=== PATIENT | female | born 1985 | race Caucasian/White ===

== ENCOUNTER → 2023-04-08 10:15 | Outpatient (BNV) | payer MEDICARE, MEDICAID, SELFPAY | PROVIDERS: Visit Provider Psychiatry & Neurology Psychiatry | DX: F31.60 Bipolar disorder, current episode mixed, unspecified (principal); F14.90 Cocaine use, unspecified, uncomplicated | CPT/HCPCS: 90792 ==

== ENCOUNTER 2023-04-08 13:59 | Outpatient (REF) | payer MEDICARE, SELFPAY ==
[2023-04-08 15:22] LABS: Amphetamine Screen Urine POSITIVE (Not Detect); Barbiturates, Urine Not Detected (Not Detect); Benzodiazepines Screen Urine Not Detected (Not Detect); Cannabinoid Screen Urine POSITIVE (Not Detect); Cocaine Screen Urine POSITIVE (Not Detect); Fentanyl, urine Not Detected (Not Detect); Opiate Screen Urine Not Detected (Not Detect); Phencyclidine Screen Urine Not Detected (Not Detect)
== END 2023-04-08 14:00 | disposition home or self-care (01) ==
LOC: HO.LNP 13:59
PROVIDERS: Visit Provider Psychiatry & Neurology Psychiatry
DX: F14.20 Cocaine dependence, uncomplicated (principal); F10.20 Alcohol dependence, uncomplicated
CPT/HCPCS: 80307

== ENCOUNTER 2023-04-25 09:45 | Outpatient (RCR) | payer MEDICARE, MEDICAID, SELFPAY ==
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
[2023-04-08 11:49] VITALS: BP 112/72; PULSE 76; TEMP 36.4
[2023-04-08 11:52] VITALS: BMI 46.7
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
--- NOTE | 2023-04-15 08:07 | HO.PHP ---
The clients case was reviewed and opened in treatment team.
--- NOTE | 2023-04-15 16:49 | HO.PHP ---
The client overslept this morning . She will be in on Tuesday.
--- NOTE | 2023-04-28 15:03 | HO.PHP ---
I left a message for the clients therapist Yuliana at [facility] re discharge from the program.
== END 2023-04-25 23:59 | disposition home or self-care (01) ==
LOC: HO.PHPA 09:45
PROVIDERS: Visit Provider Psychiatry & Neurology Psychiatry
DX: F31.60 Bipolar disorder, current episode mixed, unspecified (principal); F14.90 Cocaine use, unspecified, uncomplicated; F11.20 Opioid dependence, uncomplicated; Z79.899 Other long term (current) drug therapy
CPT/HCPCS: 90791; 90853

== ENCOUNTER → 2023-04-29 12:52 | Outpatient (BNVA) | payer MEDICARE, MEDICAID, SELFPAY | PROVIDERS: Visit Provider Physician Assistant Surgical ==

== ENCOUNTER 2023-08-12 13:00 | Outpatient (AMB) | payer MEDICARE, MEDICAID, SELFPAY ==
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
[2023-08-12 12:55] VITALS: BMI 51.4
== END 2023-08-12 14:57 | disposition home or self-care (01) ==
LOC: HO.HBS 14:56
PROVIDERS: Visit Provider Physician Assistant Surgical
DX: E66.01 Morbid (severe) obesity due to excess calories (principal); Z68.43 Body mass index [BMI] 50.0-59.9, adult; R06.83 Snoring
CPT/HCPCS: 99443

== ENCOUNTER → 2023-08-12 13:00 | Outpatient (BNVA) | payer MEDICARE, MEDICAID, SELFPAY | PROVIDERS: Visit Provider Physician Assistant Surgical | DX: E66.01 Morbid (severe) obesity due to excess calories (principal); R06.83 Snoring ==

== ENCOUNTER 2023-08-24 15:04 | Outpatient (AMB) | payer MEDICARE, MEDICAID, SELFPAY ==
--- NOTE | 2023-08-24 14:53 | A.OFFVIS_ITS ---
Intake Intake Visit Reasons: VIDEO Initial Nutrition SWL Ladies Locker Room Attendant Required: No Allergies No Known Allergies Allergy (Verified 04/08/23 11:49) HPI Nutrition Presentation Reason for consult elevated BMI Unstable SDH Reports transportation, food insecurity and use of SNAP Diet Assmnt Details Hasn't started the nutrition plan with the protein shakes. Gets rides through [employer] so hasn't gotten to purchase the shakes yet. SDhe reports otherwise she has been trying to follow the plan and make healthy food choices. Has alot of beef at home, looking for recipes. sent all resources today. Does not have top teeth, so cannot have protein bars, raw veg pt reports she has a pollen allergy so cannot have fruit - is only able to eat a very small amount of certain fruits. Has 6 children , does not have custody of her 2 year old twin children. quit smoking cigarettes 2 weeks ago. Has a hx of cocaine use, alcohol abuse. Tested positive for cocaine March of 2023 , noted 2022 partial hospitalization program Dietary counseling reduction Lifestyle Emotional Eating Reports sad, depression and anxiety Food frequency Dairy: daily, Fruit: never, Vegetables: never, Grains/pasta/breads/cereal (carbs): daily and Meats/poultry/fish (protein): daily Diagnosis Nutrition problem #1 overweight/obesity As related to (etiology) #1 excess energy intake and physical inactivity As evidenced by (sign/symptom) #1 high BMI Monitoring/Goals Nutrition problem monitoring total energy intake, level of knowledge/skill, total PRO intake, total CHO intake and weight Learning/Education Readiness to learn fair Stages of change pre-contemplation Most Recent Diabetes Results: No Data to Display [facility] Medical History (Updated 08/16/23 @ 16:20 by EVANS Bautista) Crack cocaine use Bilateral carpal tunnel syndrome delivery delivered Asthma Fibromyalgia Surgical History History of surgery on lower extremity Social History Household Members: Spouse Patient Tobacco Use Status: Current everyday Tobacco user Tobacco use type: Cigarette Assessment & Plan Assessment & Plan (1) Morbid obesity: Code(s): E66.01 - Morbid (severe) obesity due to excess calories Plan will discuss candidacy with team Telehealth Telehealth Location of provider rendering services: practice address Location of patient: address on file Patient Identification confirmed using: Name, : Yes Telehealth method: video Patient verbally consented to treatment: Yes Patient verbally consented to billing insurance company: Yes Patient informed of any privacy concerns related to visit: Yes Minutes spent on Phone/Video with Pt.: 25 Coding Level of Care Code Nutr Indiv Intake (39907) Diagnoses Morbid obesity E66.01 Time Spent (min) 25
== END 2023-08-24 15:21 | disposition home or self-care (01) ==
LOC: HO.HBS 15:04
PROVIDERS: Visit Provider Dietitian, Registered
DX: E66.01 Morbid (severe) obesity due to excess calories (principal)

== ENCOUNTER → 2023-08-24 15:04 | Outpatient (BNVA) | payer MEDICARE, MEDICAID, SELFPAY | PROVIDERS: Visit Provider Dietitian, Registered | DX: E66.01 Morbid (severe) obesity due to excess calories (principal) | CPT/HCPCS: 97802 ==

== ENCOUNTER 2023-09-01 09:08 | Outpatient (REF) | payer MEDICARE, MEDICAID, SELFPAY ==
--- NOTE | ~2023-09-01 | XR_ITS ---
EXAMINATION: XR CHEST CLINICAL INFORMATION: Morbid obesity due to excess calories. COMPARISON: None available. TECHNIQUE: 2 views of the chest were obtained. FINDINGS: The lung volumes are low. There is no gross pneumothorax. No pleural effusion. Mild degenerative changes in the thoracic spine. Heart size upper limits of normal. Rightward curvature at the thoracolumbar junction. No focal consolidation to suggest pneumonia. XR/XR chest 2V IMPRESSION: Low lung volumes. No evidence of pneumonia. Cardiac size upper limits of normal. No focal consolidation to suggest pneumonia. Rightward curvature at the thoracolumbar junction.
[2023-09-01 09:46] LABS: MANUAL DIFF FLAG NO
--- NOTE | 2023-09-01 09:53 | ECG_ITS ---
Test Reason : obesity Blood Pressure : / mmHG Vent. Rate : 079 BPM Atrial Rate : 079 BPM P-R Int : 162 ms QRS Dur : 088 ms QT Int : 364 ms P-R-T Axes : 046 080 047 degrees QTc Int : 417 ms Normal sinus rhythm Normal ECG No previous ECGs available Referred By: Jose Raul Velarde Electronically Signed By:ANJUM HONEYCUTT
[2023-09-01 10:02] LABS: Basophils Percent Auto 0.4 % (0-2); Eosinophils Absolute Auto 0.1 X10*3/uL (0.0-0.4); Eosinophils Percent Auto 1.3 % (0-4); Hematocrit 41.3 % (37.0-47.0); Hemoglobin 13.7 g/dl (12.0-16.0); Imm Gran Abs Auto 0.03 X10*3/uL (0.00-0.03); Imm Gran Pct Auto 0.4 % (0.0-0.4); Lymphocytes Absolute Auto 3.5 X10*3/uL (1.2-4.9); Lymphocytes Percent Auto 45.5 % (20-40); Mean Corpuscular HGB Conc 33.2 g/dl (31.0-35.0); Mean Corpuscular Hemoglobin 30.2 pg (27.0-33.0); Mean Platelet Volume 8.6 fL (9.4-12.3); Monocytes Absolute Auto 0.6 X10*3/uL (0.1-1.2); Neutrophils Absolute Auto 3.4 x10*3/uL (2.0-8.3); Neutrophils Percent Auto 44.4 % (45-73); Platelet Count 343 X10*3/uL (160-400); Red Blood Count 4.54 X10*6/uL (4.20-5.50); Red Cell Distribution Width 12.9 % (11.0-16.0); White Blood Count 7.7 X10*3/uL (4.8-10.8)
[2023-09-01 10:29] LABS: Estimated Average Glucose 94 mg/dL; Hemoglobin A1c % 4.9 % (<6.0)
[2023-09-01 11:00] LABS: Alanine Aminotransferase 10 U/L (0-31); Albumin Level 4.3 g/dL (3.5-5.0); Alkaline Phosphatase 84 U/L (39-117); Anion Gap 13 (12-20); Aspartate Amino Transferase 11 U/L (5-31); Bilirubin Total 0.5 mg/dL (0.0-1.0); Blood Urea Nitrogen 15 mg/dL (9-16); C Reactive Protein 0.12 mg/dL (< or = 0.50); Calcium 9.6 mg/dL (8.4-10.2); Carbon Dioxide 29 mmol/L (22-29); Chloride 104 mmol/L (96-108); Cholesterol 216 mg/dL (<200); Estimated Glomerular Filt Rate > 60; Glucose Random 103 mg/dL (60-115); HDL Cholesterol 35 mg/dL (>40); Iron 104 mcg/dL (30-160); LDL Cholesterol Calculated 151 mg/dL (<100); Percent Iron Saturation 37 % (15-50); Potassium 3.9 mmol/L (3.3-5.1); Sodium 142 mmol/L (135-145); Total Iron Binding Capacity 283 mcg/dL (228-428); Total Protein 7.4 g/dL (6.5-8.0); Triglycerides 154 mg/dL (<150); Unsaturated Iron Binding 179 ug/dL
[2023-09-01 11:05] LABS: Ferritin 47 ng/mL (10-122); Insulin 13 uU/mL (2-29); Vitamin D 25-OH Total 19.9 ng/mL (>30)
[2023-09-01 11:13] LABS: Folate 9.6 ng/mL (> or = 4.0); Vitamin B12 386 pg/mL (200-900)
[2023-09-06 00:09] LABS: Zinc 72 mcg/dL (60-130)
[2023-09-07 00:28] LABS: Vitamin A 55 mcg/dL (38-98)
[2023-09-07 15:12] LABS: Vitamin B1 8 nmol/L (8-30)
== END 2023-09-01 09:09 | disposition home or self-care (01) ==
LOC: HO.LAB 09:08
PROVIDERS: Visit Provider Physician Assistant Surgical
DX: E66.01 Morbid (severe) obesity due to excess calories (principal)
CPT/HCPCS: 36415; 71046; 80053; 80061; 82306; 82607; 82728; 82746; 83036; 83525; 83540; 84425; 84443; 84590; 84630; 85025; 86140; 93005

== ENCOUNTER → 2023-09-01 09:53 | Outpatient (BNV) | payer MEDICARE, MEDICAID, SELFPAY | PROVIDERS: Visit Provider Internal Medicine | DX: E66.01 Morbid (severe) obesity due to excess calories (principal) | CPT/HCPCS: 93010 ==

== ENCOUNTER 2023-09-07 14:12 | Outpatient (AMB) | payer MEDICARE, MEDICAID, SELFPAY ==
--- NOTE | 2023-09-07 10:09 | A.OFFVIS_ITS ---
Intake VS Expanded 09/07/23 10:12 Height 4 ft 11.5 in Weight 242 lb 9.6 oz BMI 48.2 Body Fat % 66.7 Body Fat Mass 161.8 Fat Free Mass 80.8 Visceral Fat Rating 30 Intake Visit Reasons: VIDEO F/U SWL Bundle Packer Required: No Allergies No Known Allergies Allergy (Verified 04/08/23 11:49) Medication List - Last Reconciled 09/07/23 by EVANS Bautista baclofen 10 mg PO TID buprenorphine-naloxone 8-2 mg (Suboxone) 1 film sublingual BID bupropion HCl (smoking deter) 150 mg PO QAM cholecalciferol (vitamin D3) 125 mcg PO DAILY 90 days cyanocobalamin (vitamin B-12) 500 mcg PO DAILY 90 days dextroamphetamine-amphetamine 20 mg 1 tab PO BID gabapentin 600 mg PO QID ibuprofen 800 mg PO Q8H lamotrigine 200 mg PO DAILY lurasidone 60 mg PO DAILY norethindrone (contraceptive) 0.35 mg PO DAILY sertraline 100 mg PO DAILY trazodone 100 mg PO BEDTIME varenicline 1 mg PO BID HPI HPI Comments History of Present Illness Details The patient is a pleasant 37 year old female who returns to the clinic for pre-operative surgical weight loss management. They were last seen in the office on 08/12/23, recorded weight at that time was 259 pounds, with a BMI of 51.4. Today's weight is 242.6 pounds and BMI is 48.2. Pre op work up completed as follows: SWL classes:? []/8 BH appts: 09/13/23 ? ? RD appts: 08/24/2023 Labs: 09/01/2023-low D, B12: 386 H. pylori: [] CXR: 09/01/2023-nad EK09/01/2023-normal ABD U/S: [] UGI: [] The patient reports she is more active. She is doing 10,000 steps per day. She is now walking at the grocery store and not using the electric cart. The patient does have a body composition scale. They also have been communicating weekly. Current meal plan includes: 4 shakes ([facility], [employer], [employer]), (1 scoop in 9 oz unsweetened soy milk each) First shake at 5am-7am Second shake at 8am-10am Third shake at 11am-1pm Fourth shake at 2pm-4pm Dinner at 5pm (9 forks of protein and 9 forks of salad/vegetables). Drinking 64 oz of water, no soda No ETOH, Quit smoking cigaretts 3.5 weeks and 2.5 weeks since quitting smoking cannabis. Current exercise plan includes: she cannot afford a gym membership at this time and she has been doing home videos. [facility] Medical History (Updated 08/16/23 @ 16:20 by EVANS Bautista) Crack cocaine use Bilateral carpal tunnel syndrome delivery delivered Asthma Fibromyalgia Surgical History History of surgery on lower extremity Social History Household Members: Spouse Patient Tobacco Use Status: Current everyday Tobacco user Tobacco use type: Cigarette Assessment & Plan Assessment & Plan (1) Morbid obesity: Code(s): E66.01 - Morbid (severe) obesity due to excess calories Plan: Continue current meal plan. Encouraged to increase exercise on a daily basis, continuing to challenge herself. As her endurance improves recommended walking outside. Patient may be a surgical candidate however awaiting discussion with our behavioral health specialist given patient's history of substance abuse. She has made progress in quitting smoking and marijuana. She may require more time than typical prior to surgery or may benefit from transitioning to a medical weight loss approach. This was discussed with the patient who is in agreement and open to any ideas or suggestions. Telehealth Telehealth Location of provider rendering services: practice address Location of patient: address on file Patient Identification confirmed using: Name, : Yes Telehealth method: voice only Patient verbally consented to treatment: Yes Patient verbally consented to billing insurance company: Yes Patient informed of any privacy concerns related to visit: Yes Minutes spent on Phone/Video with Pt.: 20 Coding Level of Care Code Est Pt Level 3 (00764) Diagnoses Morbid obesity E66.01 Time Spent (min) 20
[2023-09-07 10:12] VITALS: BMI 48.2
== END 2023-09-07 14:31 | disposition home or self-care (01) ==
LOC: HO.HBS 14:12
PROVIDERS: Visit Provider Physician Assistant Surgical
DX: E66.01 Morbid (severe) obesity due to excess calories (principal); Z68.42 Body mass index [BMI] 45.0-49.9, adult
CPT/HCPCS: 99442

== ENCOUNTER → 2023-09-07 14:12 | Outpatient (BNVA) | payer MEDICARE, MEDICAID, SELFPAY | PROVIDERS: Visit Provider Physician Assistant Surgical ==

== ENCOUNTER 2023-09-22 09:25 | Outpatient (REF) | payer MEDICARE, MEDICAID, SELFPAY | END 2023-09-22 09:26 | disposition home or self-care (01) | LOC: HO.US 09:25 | PROVIDERS: Visit Provider Physician Assistant Surgical | DX: E66.01 Morbid (severe) obesity due to excess calories (principal) | CPT/HCPCS: 76705; 76981 ==

== ENCOUNTER 2023-09-28 16:32 | Outpatient (AMB) | payer MEDICARE, MEDICAID, SELFPAY ==
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
== END 2023-10-17 09:59 | disposition home or self-care (01) ==
LOC: HO.HBST 16:32
PROVIDERS: Visit Provider Counselor Mental Health
DX: F31.60 Bipolar disorder, current episode mixed, unspecified (principal); E66.01 Morbid (severe) obesity due to excess calories; Z68.42 Body mass index [BMI] 45.0-49.9, adult
CPT/HCPCS: 99443

== ENCOUNTER 2023-10-13 10:51 | Outpatient (REF) | payer MEDICARE, MEDICAID, SELFPAY ==
[2023-10-14 12:10] LABS: H Pylori Breath Test Negative (Negative)
== END 2023-10-13 10:52 | disposition home or self-care (01) ==
LOC: HO.LNP 10:51
PROVIDERS: Visit Provider Physician Assistant Surgical
DX: E66.01 Morbid (severe) obesity due to excess calories (principal)
CPT/HCPCS: 83013; 99211